=== PATIENT | female | born 1980 | race Caucasian/White ===

== ENCOUNTER 2018-01-04 21:00 | Emergency (ER) | payer OTHER, MEDICAID ==
[~2018-01-04] VITALS: Ht 175.3 cm; Wt 125.2 kg
[~2018-01-04 21:00] MED LIST: ALBUTEROL INHAL17 GM IH; BACTRIM DS TAB1 EACH PO; CIPROFLOXACIN500 M1 PO; DOXYCYCLINE 10100 M1 PO; HYDROCHLOROTH12.5 M1 PO; HYDROCODONE-AP1 EAC6 PO; KLOR-CON-EF 2525 ME1 PO; LEVAQUIN 500 M500 M4 PO; LEVAQUIN 750 M750 MG PO; LORTAB 5-500 T1 EAC1 PO; LORTABELXR PO; NOHOMEMEDICATIONS; NORCO 5-325 TA1 EACH PO; PHENERGAN 25 MG25 M1 PO; ROBITUSSIN10 MG; TOPAMAX 25 MG T25 M1 PO; TYLENOL325 MG PO; ULTRAM 50MG TAB50 MG PO; VITAMIN C120 GM; ZOFRAN ODT4 MG PO; ZPAK PO
[2018-01-04] MEDS ORDERED: CHERATUSSIN AC118 ML PO (22:00)
[2018-01-04] MEDS ORDERED: IPRAT-ALBUT 0.5-3 ML INH (22:00)
[2018-01-04 22:14] VITALS: BP 132/59
== END 2018-01-04 22:15 | disposition home or self-care (01) ==
LOC: M.ERS 21:00
DX: J20.9 Acute bronchitis, unspecified (principal); F31.9 Bipolar disorder, unspecified; N18.9 Chronic kidney disease, unspecified; F17.210 Nicotine dependence, cigarettes, uncomplicated; Z91.040 Latex allergy status; Z88.0 Allergy status to penicillin; Z90.49 Acquired absence of other specified parts of digestive tract; Z86.2 Personal history of diseases of the blood and blood-forming organs and certain disorders involving the immune mechanism; Z98.890 Other specified postprocedural states; Z86.14 Personal history of Methicillin resistant Staphylococcus aureus infection

== ENCOUNTER 2019-12-04 16:13 | Emergency (ER) | payer OTHER ==
[~2019-12-04] VITALS: Ht 175.3 cm; Wt 123.8 kg
[~2019-12-04 16:13] MED LIST changes: +CHERATUSSIN AC118 ML PO; +IPRAT-ALBUT 0.5-3 ML INH
[2019-12-04 16:48] LABS: ABSOLUTE EOSINOPHILS 0.2 thou/uL (0.0-0.7); ABSOLUTE LYMPHOCYTES 1.4 thou/uL (0.8-5.3); ABSOLUTE MONOCYTES 0.4 thou/uL (0.0-1.2); ABSOLUTE NEUTROPHILS 3.2 thou/uL (1.6-8.1); BASOPHILS 0.7 %; EOSINOPHILS 4.7 %; HEMATOCRIT 42.6 % (37.0-47.0); HEMOGLOBIN 14.7 gm/dL (12.0-15.0); LYMPHOCYTES 26.2 %; MCH 34.9 pg (26.0-34.0); MCHC 34.6 g/dL (28.0-37.0); MCV 100.8 fL (80.0-100.0); MPV 8.3 fl. (7.2-11.1); NUCLEATED RBCS 0 /100WBC; PLATELET COUNT* 274 thou/uL (150-400); POLYS 61.4 %; RBC 4.22 mil/uL (4.20-5.00); RDW-CV 12.7 % (10.5-14.5); WBC 5.2 thou/uL (4.0-11.0)
[2019-12-04 16:58] LABS: CALCIUM 9.1 mg/dL (8.5-10.1); CREATININE 0.8 mg/dL (0.6-1.3); POTASSIUM 4.9 mmol/L (3.5-5.1)
[2019-12-04 17:02] LABS: ALBUMIN 3.8 g/dL (3.4-5.0)
[2019-12-04 17:21] LABS: TOTAL BILIRUBIN 0.2 mg/dL (<0.1-1.0); TOTAL PROTEIN 7.3 g/dL (6.4-8.2)
[2019-12-04 17:32] LABS: URINE BILIRUBIN NEGATIVE (Negative); URINE BLOOD 3+ (Negative); URINE CLARITY CLEAR; URINE COLOR YELLOW; URINE GLUCOSE-RANDOM NEGATIVE (Negative); URINE KETONES NEGATIVE (Negative); URINE LEUKOCYTES-REFLEX TRACE (Negative); URINE NITRITE-REFLEX NEGATIVE (Negative); URINE PROTEIN NEGATIVE (Negative); URINE SPECIFIC GRAVITY 1.025 (1.005-1.030); URINE UROBILINOGEN 0.2 E.U./dl (0.2-1.0)
[2019-12-04 17:40] LABS: BACTERIA-REFLEX >30 Many /HPF (None Seen); CRYSTALS None Seen /LPF (None Seen); MUCUS 0-3 Light strn/LPF (None Seen); SQUAMOUS 4-10 Moderate /LPF (0-3); URINE RBC 3-10 Few /HPF (0-2); URINE WBC-REFLEX 6-15 Few /HPF (0-5)
[2019-12-04 17:41] LABS: CASTS None Seen /LPF (None Seen)
[2019-12-04] MEDS ORDERED: APAP W/CODEINE1 TA2 PO (17:44)
[2019-12-04] MEDS ORDERED: CIPRO500 MG PO (17:44)
[2019-12-04] MEDS ORDERED: ONDANSETRON HCL4 M2 PO (17:44)
[2019-12-04 17:56] VITALS: BP 128/80
== END 2019-12-04 17:58 | disposition home or self-care (01) ==
LOC: M.ERS 16:13
PROVIDERS: Physician Assistant
DX: N39.0 Urinary tract infection, site not specified (principal); F31.9 Bipolar disorder, unspecified; F17.210 Nicotine dependence, cigarettes, uncomplicated; Z20.828 Contact with and (suspected) exposure to other viral communicable diseases; Z86.2 Personal history of diseases of the blood and blood-forming organs and certain disorders involving the immune mechanism; Z90.49 Acquired absence of other specified parts of digestive tract; Z98.51 Tubal ligation status; Z86.14 Personal history of Methicillin resistant Staphylococcus aureus infection; Z91.040 Latex allergy status; Z88.0 Allergy status to penicillin

== ENCOUNTER 2020-04-26 11:36 | Emergency (ER) | payer OTHER ==
[~2020-04-26] VITALS: Ht 177.8 cm; Wt 115.7 kg
[~2020-04-26 11:36] MED LIST changes: +APAP W/CODEINE1 TA2 PO; +CIPRO500 MG PO; +ONDANSETRON HCL4 M2 PO
[2020-04-26 12:33] LABS: INFLUENZA A ANTIGEN Negative (Negative); INFLUENZA B ANTIGEN Negative (Negative)
[2020-04-26] MEDS ORDERED: PREDNISONE 20 M20 M1 PO (13:40)
[2020-04-26] MEDS ORDERED: ZPAK PO (13:40)
[2020-04-26] MEDS ORDERED: VENTOLIN HFA 1818 GM INH (13:40)
[2020-04-26 13:54] VITALS: BP 148/72
[2020-04-26] MEDS ORDERED: TESSALON PERLE100 MG PO (13:57)
== END 2020-04-26 13:55 | disposition home or self-care (01) ==
LOC: M.ERS 11:36
PROVIDERS: Emergency Medicine Emergency Medical Services
DX: U07.1 COVID-19 (principal); F17.210 Nicotine dependence, cigarettes, uncomplicated; Z88.0 Allergy status to penicillin; Z91.040 Latex allergy status; Z90.49 Acquired absence of other specified parts of digestive tract; Z98.51 Tubal ligation status